=== PATIENT | female | born 1970 | race Caucasian/White ===

== ENCOUNTER → 2022-07-02 17:33 | Outpatient (CLI) | payer OTHER, SELFPAY ==
--- NOTE | ~2022-07-02 | XR_ITS ---
AP view of the pelvis and AP and lateral views of the left hip Clinical history: Pain Findings: No acute fracture or dislocation is seen. Osseous alignment is anatomic. Bilateral hip and SI joint spaces are preserved. Soft tissues are unremarkable. Impression: No significant abnormality is seen. Reviewed, dictated and finalized at [facility]. T BOOTH OPERATOR Impression: No significant abnormality is seen.
== END ==
PROVIDERS: PCP Nurse Practitioner Family; Visit Provider Chiropractor
DX: M25.551 Pain in right hip (principal); M25.552 Pain in left hip
CPT/HCPCS: 73502

== ENCOUNTER 2024-10-08 16:01 | Emergency (ER) | payer OTHER, SELFPAY ==
--- OUTSIDE RECORDS SUMMARY | 2024-10-08 16:02 | XMS_ITS | CONTINUITY OF CARE DOCUMENT ---
Author Name francisco singh Address Unknown Organization [facility] Address [address] [place] [address] Phone [phone] Care Team Providers Care Therapy Administrative Assistant Name Role Phone Som REDDY, [facility] [[email or web address]] Unavailable TOM HERNANDEZ MD Unavailable TOM HERNANDEZ MD Unavailable VITAL SIGNS Date Observation Value Provider blood pressure, diastolic 78 mm[Hg] Sylvie Hernandez blood pressure, systolic 127 mm[Hg] David Hernandez FUNCTIONAL STATUS Date Observation Value Provider periodic limb movement index absent (0) Jackelin Hernandez INSURANCE PROVIDERS Payer name Policy type / Coverage type Guero red democrat ID [facility] [id number] Other [id number]
--- OUTSIDE RECORDS SUMMARY | 2024-10-08 16:02 | XMS_ITS | Encounter Summary ---
Author Organization [facility] Address [address] [place] [address] Care Team Providers Care Pi/Senior Research Associate Name Role Phone Ele Adams MD Primary Care Provider + [phone] Jigna Reddy MD PhD Unavailable [phone] Jaclyn Carreon MD Unavailable [phone] Nila Fregoso NP Primary Care Provider + Encounter Details Date Type Department Care Team (Late st Contact Info) Description 12/02/[address] 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 Gender Identity Female 10/22/2022 7:27 AM CDT Sexual Orientation Straight 10/22/2022 7: 27 AM CDT documented as of this encounter Miscellaneous Notes * Telephone Encounter - Sallie Lozano RT - 12/02/2019 9:33 AM CDT documented in this encounter Plan of Treatment Scheduled Procedures Name Priority Associated Diagnoses Date/Ti me COLONOSCOPY Colon cancer screening COLONOSCOPY Endometrial polyp documented as of this encounter Visit Diagnoses Not on filedocumented in this encounter Care Teams Pi/Senior Research Associate Relationship Specialty Start Date End Date Ele Adams MD [address] [place] [address] PCP - General Family Medicine 03/24/18 03/14/20 Nila Fregoso NP [address] [place] [address] PCP - General Nurse Practitioner 03/15/20 Jigna Reddy MD PhD [address] [place] [address] Radiation Oncologist Radiation Oncology 04/18/18 Jaclyn Carreon MD [address] [place] [address] Surgeon Surgical Oncology 06/26/18 documented as of this encounter
--- OUTSIDE RECORDS SUMMARY | 2024-10-08 16:03 | XMS_ITS ---
Author Organization [facility] [address] [facility] Address [address] [place] [address] Care Team Providers Care Statement Clerks Manager Name Role Phone Jigna Reddy MD PhD Unavailable Jaclyn Carreon MD Unavailable Nila Fregoso MARKER MACHINE Primary Care Provider + Active Problems Problem Noted Date Diagnosed Date Screening for colon cancer 05/29/2023 Endometrial cancer 12/06/2022 Endometrial polyp 10/22/2022 Encounter for follow-up surveillance of endometr ial cancer 12/28/2020 Encounter for follow-up exam ination after completed treatment for conditions other than malignant neoplasm 06/26/2018 Personal history of in-situ neoplasm of breast 0 06/26/2018 Personal history of irradiation 06/26/2018 residential (current) use of s elective estrogen receptor modulators (serms) 06/26/2018 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 Past Treatment and Therapy Plans No past plan information found. Radiation Treatments * Course C1 [facility] BREAST 04/13/2018 - 04/17/2018 Treatment Period Energy Fraction Dose Fractions Total Dose Plans Planned VR [facility] BREAST 04/13/2018 - 04/17/2018 385 3,850 Reference Points Delivered [facility] BREAST 3850 04/13/2018 - 04/17/2018 3,850
--- OUTSIDE RECORDS SUMMARY | 2024-10-08 16:03 | XMS_ITS | Clinical Summary ---
Author Organization [facility] [address] [facility] Address [address] [place] [address] Care Team Providers Care Asbestos Remover Name Role Phone Jigna Reddy MD PhD Unavailable [phone] Jaclyn Carreon MD Unavailable [phone] Nila Fregoso BOOK SEWER Primary Care Provider + Allergies No known active allergies Medications No known medications Active Problems Problem Noted Date Diagnosed Date Screening for colon cancer 05/29/2023 Endometrial cancer 12/06/2022 Endometrial polyp 10/22/2022 Encounter for follow-up surveillance of endometr ial cancer 12/28/2020 Encounter for follow-up exam ination after completed treatment for conditions other than malignant neoplasm 06/26/2018 Personal history of in-situ neoplasm of breast 0 06/26/2018 Personal history of irradiation 06/26/2018 [facility] (current) use of s elective estrogen receptor modulators (serms) 06/26/2018 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 Cancer Staging:Pathologic:Stage 0(pTis (DCIS), cN0, cM0, G3, ER: Positive, [place]: Positive, HER2: Not assessed ) - Signed by Jigna Reddy MD PhD on 04/18/2018 Abnormal mammogram 12/07/2017 Family history of cardiovascular disease 017 Iron deficiency anemia 12/09/2016 Onychomycosis of toenail 12/09/2016 Mass of breast 06/05/2016 Encounters Date Type Department Care Team Description 10/04/2024 Plan of Care Documentation [facility] Physical Therapy [address] 1[address] [place] [address] 09/30/2024 2:00 PM CDT Therapy [facility] Therapy [address] 1[address] [place] [address] Dorota Franco, DPBart Endometrial adenocarcinoma (HCC) (Primary Dx); Ductal carcinoma in situ (DCIS) of right breast; Female genital prolapse, unspecified type; Arthralgia of hip, left; Surgical menopause; Arthralgia of hip, unspecified laterality 09/03/2024 2:20 PM CDT Office Visit [facility] Obstetrics and Gynecology [address] [facility] 13th [place] [address] [place] [address] Isidra Gar MD Encounter for routine cancer follow-up (Primary Dx); Endometrial adenocarcinoma (HCC); Vasomotor flushing 08/06/2024 7:14 AM CDT - 08/06/2024 11:59 PM CDT Hospital Encounter [facility] [address] [place] [address] Ductal carcinoma in situ (DCIS) of right breast; History of breast cancer Discharge Disposition: Discharge to home or self care 08/06/2024 Results Follow-Up [facility] Surgery [facility] [place] [address] Linnea Costa NP MRI Breast Bilateral W WO Contrast 08/02/2024 Telephone [facility] Surgery [facility] [address] [place] [address] Meagan García RN 07/12/2024 2:30 PM CDT Office Visit [facility] Obstetrics and Gynecology [address] [place] [address] Liudmila Sexton MD Surgical menopause (Primary Dx); Endometrial adenocarcinoma (HCC); Ductal carcinoma in situ (DCIS) of right breast; Female genital prolapse, unspecified type; Arthralgia of hip, unspecified laterality from Last 3 Months Immunizations Immunization Administration Dates Next Due DTaP 09/17/1976, 3,03/07/1972,02/01/1972,0 01/01/1972 Hep A, Adult 01/09/2017 Hep B Vaccine 06/11/2017,01/16/2017,12/09/2016 Hep B, Unspecified 01/09/2017 Influenza, Trivalent, IM (MDV) 01/18/2014 MMR 10/19/1979,10/13/1972 OPV 09/17/1976,07/27/1973,06/30/1972 ,03/07/1972 Td, Not Adsorbed 01/15/1993,12/23/1986 Tdap 10/25/2014,12/18/2004 Surgical History Surgery Date Site/Laterality Comments BREAST BIOPSY 11/18/2017 Right BREAST BIOPSY 05/05/2017 - 05/04/2018 Right BREAST BIOPSY 12/15/2017 Left BREAST LUMPECTOMY 03/09/2018 ROBOTIC ASSISTED HYSTERECTOMY HYSTERECTOMY Medical History Medical History Date Comments Anesthesia Mother (violentl y ill) and both kids (one had rash, other had delayed emergence) had problems with anesthesia Breast cancer (HCC) Motion sickness Family History Medical History Relation Name Comments Anesthesia problems Daughter nausea a nd stomach ache & white splotches- frenectomy Diabetes Father Heart attack Father Heart disease Father Lung cancer Maternal Grandfather Anesthesia problems Mother severe P ONV Stroke Mother Breast cancer Mother's Sister Anesthesia problems Son dentral extraction; long to wake up did not require intubation/hospital stay Malig Hypertension Neg Hx Malig Hyperthermia Neg Hx Pseudochol deficiency Neg Hx Relation Name Status Comments Daughter Father of MS age 71; 1st MS age 51 Maternal Grandfather Mother Alive CVA age 67 Mother's Sister Sister Alive Son Social History Tobacco Use Types Packs/Day Years Used Date Smoking Tobacco: Never Smokeless Tobacco: Never Tobacco Cessation:Counseling Given: Not Answered Alcohol Use Standard Drinks/Week Comments No 0 (1 standard drink = 0.6 oz pur e alcohol) AUDIT-C Answer Date Recorded Q1: How often do you have a drink containing alc ohol? Never 10/06/2023 Average Number of Drinks Not on file 024 Frequency of Binge Drinking Not on file 07/2023 Exercise Vital Sign Answer Date Recorde d On average, how many days pe r week do you engage in moderate to strenuous exercise (like a brisk walk)? 7 days 03/15/2020 On average, how many minutes do you engage in exercise at this level? 30 min 03/15/2020 Personal Safety Answer Date Recorded Have you ever been in or are you currently in a harmful physical or emotional relationship or is someone making you feel afraid or unsafe? 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 on file Not on fi le Obstetrics History Para Term AB IAB SAB Ectopic Multiple Livin g Live Births 2 2 2 2 2 Date Outcome GA Total Labor Labor/2nd/3rd Weight Sex Type Anes PTL Fiona A1 A5 Name Clin 1998 Term F Vag-S pont Living 2000 Term M Vag-S pont Living Last Filed Vital Signs Vital Sign Reading Time Taken Comments Blood Pressure 138/85 09/03/2024 2:52 PM CDT Pulse 92 09/03/2024 2:52 PM CDT Temperature 36.8 C (98.3 F) 09/03/2024 2:52 PM CDT Respiratory Rate 20 09/03/2024 2:52 PM CDT Oxygen Saturation 98% 09/03/2024 2:52 PM CDT Inhaled Oxygen Concentration - - Weight 90.3 kg (199 lb 1.6 oz) 09/03/2024 2:52 P M CDT Height 167.6 cm (5' 6) 08/06/2024 7:31 AM CDT Body Mass Index 32.14 08/06/2024 7:31 AM CDT Plan of Treatment Scheduled Procedures Name Priority Associated Diagnoses Date/Ti me COLONOSCOPY Colon cancer screening COLONOSCOPY Endometrial polyp Health Maintenance Due Date Last Done Comments Depression Screening 1970 Hepatitis C Screening 1970 Zoster Vaccine (1 of 2) 09/23/2021 DTaP/Tdap/Td Vaccine (8 - Td or Tdap) 10/25/2024 10/25/2014, 12/18/2004, 01/15/1993, Additional history exists Influenza Vaccine (Season Ended) 2025 01/18/2014 Regular Well Visit/Exam 18-64 02/01/2025 02/02/2024, 10/22/2022, 03/15/2021, Additional history exists Breast Cancer Screening-Mammogram 02/05/2025 02/06/2024, 02/04/2023, 01/01/2022, Additional history exists Colon Cancer Screening-Colonoscopy 10/05/2033 10/06/2023 Hepatitis B Screening Completed 06/11/2017 , 01/16/2017, 01/09/2017, Additional history exists Pneumococcal vaccine <65 Aged Out No longer eligible based on patient's age to complete this topic Procedures Procedure Name Priority Date/Time Associated Diagnosis Comments MRI BREAST BILATERAL W WO CONTRAST Schedule Routine, Read Routine (OP Routine) 08/06/2024 8:27 AM CDT Ductal carcinoma in situ (DCIS) of right breast History of breast cancer SCREENING MAMMOGRAM BILATERAL W PAULO Schedule Routine, Read Routine (OP Routine) 02/06/2024 2:24 PM CDT Personal history of in-situ neoplasm of breast COLONOSCOPY 10/06/2023 11:46 AM CDT from Last 3 Months or Most Recently Relevant to Health Maintenance Results * MRI Breast Bilateral W WO Contrast (08/06/2024 8:27 AM CDT) Anatomical Region Laterality Modality Breast Bilateral Magnetic Resonan ce 08/06/2024 9:43 AM CDT Impressions 08/06/2024 9:43 AM CDT No MR evidence of malignancy in either breast. OVERALL FINAL ASSESSMENT: BI-RADS Category 2: Benign. RECOMMENDATION: Annual screening mammography and breast MRI are recommended. Electronically signed by: Lor Rosen M.D. Narrative 08/06/2024 9:43 AM CDT EXAMINATION: 1. MRI EXAMINATION OF THE BREASTS WITH AND WITHOUT CONTRAST 2. 3D POST PROCESSING ON A DEDICATED 3D WORKSTATION HISTORY: High-risk Screening. 53 years old patient who presents for high risk screening MRI. The patient has a personal history of RIGHT breast ductal carcinoma in situ treated with breast conservation therapy in 2018. 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 The patient is currently on tamoxifen. The patient reports no new or current breast related complaints. TECHNIQUE: MRI examination of the breasts per breast tumor protocol with and without gadolinium contrast. A dedicated breast imaging coil was used. The images were transferred to a breast CAD system for 3D post processing and contrast kinetics analysis. CONTRAST: Gadoterate meglumine, 16 ml COMPARISON: Multiple priors dating back to 06/14/2021 and most recent screening mammogram dated 02/06/2024 was reviewed and is negative. BREAST COMPOSITION: Scattered fibroglandular tissue BACKGROUND PARENCHYMAL ENHANCEMENT: Mild FINDINGS: There are stable changes of breast conservation therapy of the right breast and postsurgical changes of the left breast. No suspicious mass or non-mass enhancement within either breast. No abnormally enlarged lymph nodes are identified in the visualized portions of either axilla. Redemonstration of subcentimeter hepatic cysts are again noted. Procedure Note Lor Rosen MD - 08/06/2024 EXAMINATION: 1. MRI EXAMINATION OF THE BREASTS WITH AND WITHOUT CONTRAST 2. 3D POST PROCESSING ON A DEDICATED 3D WORKSTATION HISTORY: High-risk Screening. 53 years old patient who presents for high risk screening MRI. The patient has a personal history of RIGHT breast ductal carcinoma in situ treated with breast conservation therapy in 2018. 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 The patient is currently on tamoxifen. The patient reports no new or current breast related complaints. TECHNIQUE: MRI examination of the breasts per breast tumor protocol with and without gadolinium contrast. A dedicated breast imaging coil was used. The images were transferred to a breast CAD system for 3D post processing and contrast kinetics analysis. CONTRAST: Gadoterate meglumine, 16 ml COMPARISON: Multiple priors dating back to 06/14/2021 and most recent screening mammogram dated 02/06/2024 was reviewed and is negative. BREAST COMPOSITION: Scattered fibroglandular tissue BACKGROUND PARENCHYMAL ENHANCEMENT: Mild FINDINGS: There are stable changes of breast conservation therapy of the right breast and postsurgical changes of the left breast. No suspicious mass or non-mass enhancement within either breast. No abnormally enlarged lymph nodes are identified in the visualized portions of either axilla. Redemonstration of subcentimeter hepatic cysts are again noted. IMPRESSION: No MR evidence of malignancy in either breast. OVERALL FINAL ASSESSMENT: BI-RADS Category 2: Benign. RECOMMENDATION: Annual screening mammography and breast MRI are recommended. Electronically signed by: Lor Rosen M.D. Linnea Cotsa NP [facility] MRI PROCEDURES Final R esult * Screening Mammogram Bilateral W Paulo (02/06/2024 2:24 PM CDT) Anatomical Region Laterality Modality Breast Bilateral Mammography Narrative 02/09/2024 11:06 AM CDT Mammogram Technique: Bilateral Digital Breast Tomosynthesis, Bilateral C-view 2D Screening mammogram. Views obtained: bilateral craniocaudal and bilateral mediolateral oblique. Computer Aided Detection was performed. Mammogram Findings: The present examination has been compared to prior imaging studies performed at [facility] on 12/29/2020, 01/01/2022 and 02/04/2023. The breasts are almost entirely fatty. There are post breast conservation therapy changes in the right breast. There is no suspicious abnormality in either breast. Impression: There is no mammographic evidence of malignancy. Annual screening mammography is recommended. OVERALL FINAL ASSESSMENT: BI-RADS CATEGORY 2: Benign. Procedure Note Chayito Severino MD - 02/09/2024 Mammogram Technique: Bilateral Digital Breast Tomosynthesis, Bilateral C-view 2D Screening mammogram. Views obtained: bilateral craniocaudal and bilateral mediolateral oblique. Computer Aided Detection was performed. Mammogram Findings: The present examination has been compared to prior imaging studies performed at [facility] on 12/29/2020, 01/01/2022 and 02/04/2023. The breasts are almost entirely fatty. There are post breast conservation therapy changes in the right breast. There is no suspicious abnormality in either breast. Impression: There is no mammographic evidence of malignancy. Annual screening mammography is recommended. OVERALL FINAL ASSESSMENT: BI-RADS CATEGORY 2: Benign. Jaclyn Carreon MD G MAMMO PROCEDURES Fi nal Result * Colonoscopy (10/06/2023 11:46 AM CDT) Anatomical Region Laterality Modality Other Narrative Procedure Note Giselle Heredia MD - 10/06/2023 11:46 AM CDT [facility] Patient Name: Jyoti Franco Procedure Date: 10/06/2023 11:46 AM Date of : 1970 Admit Type: Outpatient Age: 53 Gender: Female Attending MD: Giselle Heredia M.D. Room: [facility] ENDOSCOPY ROOM 4 Note Status: Finalized Procedure: Colonoscopy Indications: Screening for colorectal malignant neoplasm, Thisis the patient's first colonoscopy Referring MD: Isidra Gar M.D. Providers: Giselle Heredia M.D. Medicines: Monitored Anesthesia Care Complications: No immediate complications. Estimated Blood Loss: Estimated blood loss: none. Procedure: Pre-Anesthesia Assessment: - Immediately prior to administration ofmedications, the patient was re-assessed for adequacy to receive sedatives. - The risks and benefits of the procedure and the sedation options and risks were discussed with the patient. All questions were answered and informed consent was obtained. The benefits, risks and alternatives of theprocedure and sedation were discussed and informed consentwas obtained. All questions were answered. Please referto the signed informed consent document in the medical record. The scope was passed under direct vision.The CF [id number] endoscope was introduced through the anus and advanced to the cecum, identified by appendiceal orifice and ileocecal valve. The colonoscopy was performed without difficulty. The patient tolerated the procedure well. The qualityof the bowel preparation was evaluated using the BBPS ([place] Bowel Preparation Scale) with scores of:Right Colon = 3, Transverse Colon = 3 and Left Colon = 3 (entire mucosa seen well with no residual staining, small fragments of stool or opaque liquid). Thetotal BBPS score equals 9. The bowel preparation used was polyethylene glycol (PEG) via split doseinstruction. The quality of the bowel preparation wasexcellent. Findings: A few small-mouthed diverticula were found in the sigmoid colon. Small non-bleeding internal hemorrhoids were found on retroflexion. The exam was otherwise without abnormality. Impression: - Diverticulosis in the sigmoid colon. - Small non-bleeding internal hemorrhoids werefound on retroflexion. - The examination was otherwise normal. - No specimens collected. Recommendation: - Repeat colonoscopy in 10 years for screening purposes. Attending Participation: I personally performed the entire procedure. Electronically signed by Giselle Heredia MD Giselle Heredia M.D. 10/06/2023 12:22:45 PM . Number of Addenda: 0 Note Initiated On: 10/06/2023 11:46 AM us Giselle Heredia MD ENDOSCOPY PROCEDURES Final Res ult from Last 3 Months or Most Recently Relevant to Health Maintenance Insurance [facility] CHOICE PLUS [facility] HMO/PPO Address: [address] [place] [address] [address] [place] [address] [facility] CHOICE PLUS [facility] HMO/PPO Address: [address] [address] [place] [address] [place] [address] [facility] CHOICE PLUS [facility] HMO/PPO Address: [address] [address] [place] [address] Advance Directives For more information, please contact: [phone] * Full Code (Latest Code Status on File) Date Activated Date Inactivated Comments 10/06/2023 11:24 AM 10/06/2023 5:59 PM Care Teams Asbestos Remover Relationship Specialty Start Date End Date Nila Fregoso NP PCP - General Nurse Practitioner 03/15/20 Jigna Reddy MD PhD Radiation Oncologist Radiation Oncology 04/18/18 Jaclyn Carreon MD Surgeon Surgical Oncology 06/26/18
--- OUTSIDE RECORDS SUMMARY | 2024-10-08 16:03 | XMS_ITS | Encounter Summary ---
Author Organization [facility] Address [address] [place] [address] Phone Care Team Providers Care Sericulture Teacher Name Role Phone Jigna Reddy MD PhD Unavailable [phone] Jaclyn Carreon MD Unavailable [phone] Nila Fregoso NP Primary Care Provider + Encounter Details Date Type Department Care Team (Late st Contact Info) Description 08/06/2024 Results Follow-Up [facility] Surgery [address] [place] [address] Linnea Costa NP [address] [facility] [id number] [place] [address] MRI Breast Bilateral W WO Contrast Social History Tobacco Use Types Packs/Day Years [...] on file Legal Sex Female 7:31 PM [employer] Gender Identity Female 10/22/2022 7:27 AM CDT Sexual Orientation Straight 10/22/2022 7: 27 AM CDT 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
--- OUTSIDE RECORDS SUMMARY | 2024-10-08 16:03 | XMS_ITS | Referral Summary ---
Author Organization [facility] [address] [facility] Address [address] [place] [address] Care Team Providers Care Immunology Teacher Name Role Phone Jigna Reddy MD PhD Unavailable [phone] Jaclyn Carreon MD Unavailable [phone] Nila Fregoso NP Primary Care Provider + Encounters Date Type Department Care Team Description 10/04/2024 Plan of Care Documentation [facility] Physical Therapy [address] [facility] 1st Floor [address] [place] [address] 09/30/2024 2:00 PM CDT Therapy [facility] Physical Therapy [address] [facility] 1st Floor [address] [place] [address] Dorota Franco DPT Endometrial adenocarcinoma (HCC) (Primary Dx); Ductal carcinoma in situ (DCIS) of right breast; Female genital prolapse, unspecified type; Arthralgia of hip, left; Surgical menopause; Arthralgia of hip, unspecified laterality 09/03/2024 2:20 PM CDT Office Visit [facility] Obstetrics and Gynecology [address] [facility] 13th [place] [address] [place] [address] Isidra Gar MD Encounter for routine cancer follow-up (Primary Dx); Endometrial adenocarcinoma (HCC); Vasomotor flushing 08/06/2024 Results Follow-Up [facility] Surgery [address] [facility] Floor 8 [place] [address] Linnea Costa NP MRI Breast Bilateral W WO Contrast 08/06/2024 7:14 AM CDT - 08/06/2024 11:59 PM CDT Hospital Encounter [facility] [address] [place] [address] Ductal carcinoma in situ (DCIS) of right breast; History of breast cancer Discharge Disposition: Discharge to home or self care 08/02/2024 Telephone [facility] Surgery [address] Floor 8 [place] [address] Meagan García RN 07/12/2024 2:30 PM CDT Office Visit [facility] Obstetrics and Gynecology [address] [facility] 1st Floor [address] [place] [address] Liudmila Sexton MD Surgical menopause (Primary Dx); Endometrial adenocarcinoma (HCC); Ductal carcinoma in situ (DCIS) of right breast; Female genital prolapse, unspecified type; Arthralgia of hip, unspecified laterality from Last 3 Months Allergies No known active allergies Medications No [...] 0 06/26/2018 Personal history of irradiation 06/26/2018 USP (current) use of s elective estrogen receptor modulators (serms) 06/26/2018 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 Cancer Staging:Pathologic:Stage 0(pTis (DCIS), cN0, cM0, G3, ER: Positive, ND: Positive, HER2: Not assessed ) - Signed by Jigna Reddy MD PhD on 04/18/2018 Abnormal mammogram 12/07/2017 Family history of cardiovascular disease 017 Iron deficiency anemia 12/09/2016 Onychomycosis of toenail 12/09/2016 Mass of breast 06/05/2016 Immunizations Immunization Administration Dates Next Due DTaP 09/17/1976, 3,03/07/1972,02/01/1972,0 01/01/1972 Hep A, Adult 01/09/2017 Hep B Vaccine 06/11/2017,01/16/2017,12/09/2016 Hep B, Unspecified 01/09/2017 Influenza, Trivalent, IM (MDV) 01/18/2014 MMR 10/19/1979,10/13/1972 OPV 09/17/1976,07/27/1973,06/30/1972 ,03/07/1972 Td, Not Adsorbed 01/15/1993,12/23/1986 Tdap 10/25/2014,12/18/2004 Social History Tobacco Use Types Packs/Day Years [...] on file Legal Sex Female 7: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 Linnea Costa NP [facility] [place] PROCEDURES Final R esult * Screening [...] compared to prior imaging studies performed at [facility] on 12/29/2020, 01/01/2022 and 02/04/2023. The breasts [...] compared to prior imaging studies performed at [facility] on 12/29/2020, 01/01/2022 and 02/04/2023. The breasts are almost entirely fatty. There are post breast conservation therapy changes in the right breast. There is no suspicious abnormality in either breast. Impression: There is no mammographic evidence of malignancy. Annual screening mammography is recommended. OVERALL FINAL ASSESSMENT: BI-RADS CATEGORY 2: Benign. Jaclyn Carreon MD IMG MAMMO PROCEDURES Fi nal Result * Colonoscopy (10/06/2023 11:46 AM CDT) Anatomical Region Laterality Modality Other Narrative Procedure Note Giselle Heredia MD - 10/06/2023 11:46 AM CDT [facility] Patient Name: Jyoti Franco Procedure Date: 10/06/2023 11:46 AM Date of : 1970 Admit Type: Outpatient Age: 53 Gender: Female Attending MD: Giselle Heredia M.D. Room: [facility] ENDOSCOPY ROOM 4 Note Status: Finalized [...] scope was passed under direct vision.The CF [id number] endoscope was introduced through the anus and advanced to the cecum, identified by appendiceal orifice and ileocecal valve. The colonoscopy was performed without difficulty. The patient tolerated the procedure well. The qualityof the bowel preparation was evaluated using the BBPS ([place] Bowel Preparation Scale) with scores of:Right Colon [...] Most Recently Relevant to Health Maintenance Insurance [facility] Address: [address] [address] [place] [address] [address] [place] [address] [facility] Address: [address] [address] [place] [address] [place] [address] [facility] Address: [address] [place], [place] [id number] Advance Directives For more information, please contact: [phone] * Full Code (Latest Code Status on File) Date Activated Date Inactivated Comments 10/06/2023 11:24 AM 10/06/2023 5:59 PM Care Teams Immunology Teacher Relationship Specialty Start Date End Date Nila Fregoso NP PCP - General Nurse Practitioner 03/15/20 Jigna Reddy MD PhD Radiation Oncologist Radiation Oncology 04/18/18 Jaclyn Carreon MD Surgeon Surgical Oncology 06/26/18
--- OUTSIDE RECORDS SUMMARY | 2024-10-08 16:06 | XMS_ITS | CONTINUITY OF CARE DOCUMENT ---
Author Name francisco singh Address Unknown Organization [facility] Address [address] [place] [address] Phone [phone] Care Team Providers Care Marketing Admin Name Role Phone Som REDDY, [facility] Unavailable [phone] TOM HERNANDEZ MD Unavailable [phone] TOM HERNANDEZ MD Unavailable VITAL SIGNS Date Observation Value Provider blood pressure, diastolic 78 mm[Hg] Sylvie Hernandez blood pressure, systolic 127 mm[Hg] David Hernandez FUNCTIONAL STATUS Date Observation Value Provider periodic limb movement index absent (0) Jackelin Hernandez INSURANCE PROVIDERS Payer name Policy type / Coverage type Guero red constitution party ID [facility] [id number] Other [id number]
[2024-10-08 16:15] VITALS: BP 136/69; PULSE 65; RESP 16; TEMP 35.9; O2SAT 99
[2024-10-08 16:28] LABS: EDSTREPNEGPOS1 Negative (Negative)
--- NOTE | 2024-10-08 17:30 | ED.URI ---
HPI - URI/Sore Throat General Chief Complaint: Upper Respiratory Infection Stated Complaint: sinus congestion Time Seen by Provider: 10/08/24 16:15 Source: patient and RN notes reviewed Mode of arrival: ambulatory Limitations: no limitations History of Present Illness HPI Narrative: 54-year-old female presents Express Care complaining for upper respiratory symptoms x1 month. Patient says the symptoms are not getting better. Patient has tried vkgy-cje-qmrrnky treatment without any improvement. Patient reports having sinus congestion that is worse on the left side of her face, chronic cough, ear fullness. Patient denies any other upper respiratory symptoms or nasal discharge. Patient denies any significant past medical history. Related Data Allergies Allergy/AdvReac Type Severity Reaction Status Date / Time No Known Allergies Allergy Mild Verified 10/08/24 16:13 Review of Systems Review of Systems: CONSTITUTIONAL: Denies fever, chills, body aches, or sweats. EYES: Denies visual changes, redness, or discharge. ENT: Negative for rhinorrhea, sore throat, or otalgia. Positive for congestion and sinus pressure. CARDIOVASCULAR: Denies chest pain, palpitations, or edema. RESPIRATORY: Negative for cough and dyspnea. GASTROINTESTINAL: Denies abdominal pain, nausea, vomiting, or diarrhea. GENITOURINARY: Denies dysuria or hematuria. SKIN: Denies rash or itching. MUSCULOSKELETAL: Denies back pain, joint pain, or myalgia. NEUROLOGIC: Denies headache, numbness, or weakness. PSYCHIATRIC: Denies anxiety or depression. All other systems reviewed are negative, except as documented in HPI. [facility] Past Medical History Medical History Osteoarthritis Obese Breast cancer 2018 Endometrial cancer 2022, secondary to use of Tamoxifen (5% of population will get CA) Hepatitis A 1994 Cancer Breast Cancer 2018, Endometrial Cancer 2022 Surgical History Surgical History H/O: hysterectomy 2022 H/O lumpectomy left and right 2017 Family History Family History Grandparent Asthma Diabetes mellitus Heart disease Cerebrovascular accident Cancer Sibling Heart disease Mother Hypertension Breast cancer Cerebrovascular accident Thyroid disorder Father Diabetes mellitus Heart disease Social History Social History Smoking status: Never smoker Alcohol intake: never Substance use: never Substance use type: does not use Occupation/Education: occupation Gender identity (if verbalized by the patient): Female Comments At the time of my signature, I reviewed and agree with the nursing past medical, surgical, social, and family history. There is no relevant family history pertinent to the patient complaint. Exam Narrative: GENERAL: This is a well-nourished, well-developed adult, in no apparent distress. They are non ill-appearing, nontoxic appearing. HEAD: normocephalic, atraumatic. EYES: Sclera clear/white. Vision is grossly intact. Conjunctiva normal bilaterally. Extraocular movements intact. EARS: External ears normal, auditory canals clear and without drainage, TMs without erythema or perforation. Hearing grossly intact. NOSE: External nose normal with no obvious nasal discharge, nasal turbinates erythematous, no rhinorrhea. Left sinus tenderness to palpation the left maxillary and frontal sinuses. Abnormal transillumination of maxillary sinuses bilaterally THROAT: Mucous membranes moist, posterior pharynx erythematous without exudate. Uvula is midline. Postnasal drip present. NECK: Neck supple, non-tender without lymphadenopathy, masses or thyromegaly. CARDIOVASCULAR: Regular rate and rhythm without murmurs, gallops, or rubs. RESPIRATORY: Clear to auscultation. Breath sounds equal bilaterally. No wheezes, rales, or rhonchi. SKIN: warm, Dry, intact with no suspicious lesions or rash, good texture and turgor. NEURO: awake, alert, and oriented to person, place and time. There were no obvious focal neurologic abnormalities. EXTREMITIES: No joint tenderness, effusion, or edema noted. BACK: Nontender without deformity. Course Course Emergency Course: Portions of this record may have been created with voice recognition software Level of Care: Express Care Visit Vital Signs Vital signs: Vital Signs Temperature 96.7 F L 10/08/24 16:15 Pulse Rate 65 10/08/24 16:15 Respiratory Rate 16 10/08/24 16:15 Blood Pressure 136/69 10/08/24 16:15 Pulse Oximetry 99 10/08/24 16:15 Oxygen Delivery Room Air 10/08/24 16:15 Temperature 96.7 F L 10/08/24 16:15 Pulse Rate 65 10/08/24 16:15 Respiratory Rate 16 10/08/24 16:15 Blood Pressure 136/69 10/08/24 16:15 Pulse Oximetry 99 10/08/24 16:15 Oxygen Delivery Room Air 10/08/24 16:15 MDM - URI/Sore Throat MDM Narrative Medical decision making narrative: Given patient's length of symptoms it is likely she has developed a bacterial sinusitis. Will treat with Augmentin. Discussed physical exam findings. Advised supportive measures and signs/symptoms to go to the ER. Pt is appropriate for outpt treatment and f/u. Differential Diagnosis Differential diagnosis: Likely upper respiratory infection, sinusitis and pharyngitis Lab Data Attestation: I reviewed the patient's lab results. Labs: Lab Results 10/08/24 Range/Units 16:27 POC Grp A Strep Screen Negative (Negative) Discharge Plan Discharge Clinical Impression: Sinusitis Qualifiers: Sinusitis location: unspecified location Chronicity: acute Recurrence: non-recurrent Qualified Code(s): J01.90 - Acute sinusitis, unspecified Patient Disposition: Home Condition: Stable Instructions: Antibiotic Form, Sinusitis (ED) Additional Instructions: Your rapid strep was negative today. A Throat culture will be sent off and if it is positive you will be contacted. Take the antibiotics as directed and complete the course even if you start to feel better. You may use a Neti pot saline rinse 3 times a day with lukewarm distilled water Continue to take Tylenol or Motrin for pain. Use a humidifier or vaporizer at night. Drink plenty of water. 8-10 glasses per day. Use flonase 2 times per day for 5 days then as needed Take mucinex 2 times per day and be sure to take with 8oz of water. Follow up with Primary provider in 3-5 days Please go to the ER if he develops any difficulty breathing, worsening symptoms, or any other concerns Patient Language: Kenyan Prescriptions: New amoxicillin-pot clavulanate 875-125 mg tablet 1 tablet PO Q12H 7 Days Qty: 14 0RF fluticasone propionate [Flonase Allergy Relief] 50 mcg/actuation spray,suspension 2 spray intranasal DAILY Qty: 1 0RF Rx Instructions: administer into each nostril Follow-up/Referrals: Nila Fregoso APRN [Primary Care Provider] - Time of Disposition: 16:32
== END 2024-10-08 16:36 | disposition home or self-care (01) ==
PROVIDERS: PCP Nurse Practitioner Family
DX: J01.90 Acute sinusitis, unspecified (principal); M19.90 Unspecified osteoarthritis, unspecified site; E66.9 Obesity, unspecified; Z68.31 Body mass index [BMI] 31.0-31.9, adult; Z85.3 Personal history of malignant neoplasm of breast; Z85.42 Personal history of malignant neoplasm of other parts of uterus; Z90.13 Acquired absence of bilateral breasts and nipples
CPT/HCPCS: 87081; 87880; 99213; G0463

== ENCOUNTER 2024-10-26 10:00 | Emergency (ER) | payer OTHER, SELFPAY ==
[2024-10-26 10:13] VITALS: BP 144/73; PULSE 102; RESP 20; TEMP 36.8; O2SAT 100
[2024-10-26 10:39] LABS: EDUAAPPEAR Cloudy; EDUABILI 1+ (Negative); EDUABLOOD 2+ (Negative); EDUACOLOR1 Yellow; EDUAGLUCOSE Negative (Negative); EDUAKETONE 1+ (Negative); EDUALEUKO Trace (Negative); EDUANITRATE Negative (Negative); EDUAPROTEIN 1+ (Negative); EDUASPGRAVITY 1.025
--- NOTE | 2024-10-26 10:57 | ED_ITS ---
HPI - URI/Sore Throat General Chief Complaint: Upper Respiratory Infection Stated Complaint: Sinus Infection Time Seen by Provider: 10/26/24 10:15 Source: patient and RN notes reviewed Mode of arrival: ambulatory Limitations: no limitations History of Present Illness HPI Narrative: 54-year-old female presents Express Care complaining of upper respiratory symptoms and mid back pain. Patient was recently treated for sinusitis earlier this month stated that symptoms mostly resolved but symptoms still persisted. Patient stated over the last 3-4 days she has developed worsening right-sided sinus pressure, mucopurulent drainage, fevers, body aches, chills, dry cough. Patient denies any sore throat, ear pain, chest pain, shortness of breath, abdominal pain, nausea, vomiting, diarrhea. Patient also said she has noticed mid back pain over the last few days. Patient denies any urinary symptoms, hematuria, or flank pain. Related Data Allergies Allergy/AdvReac Type Severity Reaction Status Date / Time No Known Allergies Allergy Mild Verified 10/26/24 10:19 Review of Systems Review of Systems: CONSTITUTIONAL: Denies sweats. Positive for fevers, body aches, chills. EYES: Denies visual changes, redness, or discharge. ENT: Denies rhinorrhea, sore throat, or otalgia. Positive for congestion and sinus pressure. CARDIOVASCULAR: Denies chest pain, palpitations, or edema. RESPIRATORY: Positive for cough. Negative for wheezing, or dyspnea. GASTROINTESTINAL: Denies abdominal pain, nausea, vomiting, or diarrhea. GENITOURINARY: Denies dysuria or hematuria. SKIN: Denies rash or itching. MUSCULOSKELETAL: Denies joint pain, or myalgia. Positive for back pain. NEUROLOGIC: Denies headache, numbness, or weakness. PSYCHIATRIC: Denies anxiety or depression. All other systems reviewed are negative, except as documented in HPI. [facility] Past Medical History Medical History Osteoarthritis Obese Breast cancer 2018 Endometrial cancer 2022, secondary to use of Tamoxifen (5% of population will get CA) Hepatitis A 1994 Cancer Breast Cancer 2017, Endometrial Cancer 2022 Surgical History Surgical History H/O: hysterectomy 2022 H/O lumpectomy left and right 2018 Family History Family History Grandparent Asthma Diabetes mellitus Heart disease Cerebrovascular accident Cancer Sibling Heart disease Mother Hypertension Breast cancer Cerebrovascular accident Thyroid disorder Father Diabetes mellitus Heart disease Social History Social History Smoking status: Never smoker Alcohol intake: never Substance use: never Substance use type: does not use Occupation/Education: occupation Gender identity (if verbalized by the patient): Female Comments At the time of my signature, I reviewed and agree with the nursing past medical, surgical, social, and family history. There is no relevant family history pertinent to the patient complaint. Exam Narrative: GENERAL: This is a well-nourished, well-developed adult, in no apparent distress. They are non ill-appearing, nontoxic appearing. Afebrile. HEAD: normocephalic, atraumatic. EYES: Sclera clear/white. Conjunctiva normal. Vision is grossly intact. Extraocular movements intact EARS: External ears normal, auditory canals clear and without drainage, TMs normal without perforation. Hearing grossly intact. NOSE: External nose normal with no obvious nasal discharge, nasal turbinates erythematous. No rhinorrhea. Maxillary Sinus tenderness to palpation THROAT: Mucous membranes moist, posterior pharynx without erythema or swelling. Uvula midline. Postnasal drip present. NECK: Neck supple, mild tenderness with cervical lymphadenopathy, no masses or thyromegaly. CARDIOVASCULAR: Regular rate and rhythm without murmurs, gallops, or rubs. RESPIRATORY: Clear to auscultation. Breath sounds equal bilaterally. No wheezes, rales, or rhonchi. Respiratory rate normal, respiratory effort nonlabored, no respiratory distress GASTROINTESTINAL: Abdomen soft, non-tender, nondistended. No hepato- splenomegaly, or palpable masses. No guarding or rigidity. SKIN: warm, Dry, intact with no suspicious lesions or rash, good texture and tu rgor. NEURO: awake, alert, and oriented to person, place and time. There were no obvious focal neurologic abnormalities. EXTREMITIES: No joint tenderness, effusion, or edema noted. BACK: Nontender without deformity. No CVA tenderness. Course Course Emergency Course: Portions of this record may have been created with voice recognition software Level of Care: Express Care Visit Vital Signs Vital signs: Vital Signs Temperature 98.2 F 10/26/24 10:13 Pulse Rate 102 H 10/26/24 10:13 Respiratory Rate 20 10/26/24 10:13 Blood Pressure 144/73 H 10/26/24 10:13 Pulse Oximetry 100 10/26/24 10:13 Oxygen Delivery Room Air 10/26/24 10:13 Temperature 98.2 F 10/26/24 10:13 Pulse Rate 102 H 10/26/24 10:13 Respiratory Rate 20 10/26/24 10:13 Blood Pressure 144/73 H 10/26/24 10:13 Pulse Oximetry 100 10/26/24 10:13 Oxygen Delivery Room Air 10/26/24 10:13 Reviewed MDM - URI/Sore Throat MDM Narrative Medical decision making narrative: Patient's symptoms consistent with a bacterial sinusitis. Patient is not having urinary symptoms but stated having mid back pain, urine dipstick was obtained showed evidence of infection. Will go ahead and treat for a UTI and a bacterial sinusitis with cefuroxime. Urine culture pending. Physical exam without concerning findings. Discussed physical exam findings. Advised supportive measures and signs/symptoms to go to the ER. Pt is appropriate for outpt treatment and f/u. Differential Diagnosis Differential diagnosis: Likely upper respiratory infection, sinusitis and other (Urinary tract infection, pyelonephritis) Lab Data Attestation: I reviewed the patient's lab results. Labs: Lab Results 10/26/24 Range/Units 10:36 POC Urine Color Yellow POC Urine Clarity Cloudy POC Urine pH 6.0 POC Ur Specif [place] 1.025 POC Urine Protein 1+ (Negative) POC Ur Glucose (UA) Negative (Negative) POC Urine Ketones 1+ (Negative) POC Urine Blood 2+ (Negative) POC Urine Nitrite Negative (Negative) POC Urine Bilirubin 1+ (Negative) POC Urine Urobilinogen 1.0 POC U Leukocyte Esteras Trace (Negative) Critical Care Time Critical Care Time Critical Care Time: No Discharge Plan Discharge Clinical Impression: Sinusitis Qualifiers: Sinusitis location: unspecified location Chronicity: acute Recurrence: recurrent Qualified Code(s): J01.91 - Acute recurrent sinusitis, unspecified Urinary tract infection Qualifiers: Urinary tract infection type: site unspecified Hematuria presence: with hematuria Qualified Code(s): N39.0 - Urinary tract infection, site not specified Patient Disposition: Home Condition: Stable Instructions: Antibiotic Form, Urinary Tract Infection in Women (ED), Sinusitis (ED) Additional Instructions: Take the antibiotics as directed and complete the course even if you start to feel better. You may use a Neti pot saline rinse 3 times a day with lukewarm distilled water Continue to take Tylenol or Motrin for pain. Use a humidifier or vaporizer at night. Drink plenty of water. 8-10 glasses per day. Use flonase 2 times per day for 5 days then as needed Take mucinex 2 times per day and be sure to take with 8oz of water. Urine also showed evidence of an infection. The urine will be sent of for a culture to identify what type of bacteria is causing your infection. If the culture shows that the antibiotic will not get rid of your infection, you will be notified and a new antibiotic will be called in for you. Increase water intake you will need to follow up with your PCP 3-5 days. Go to the ER for any worsening symptoms, abdominal pain, fevers, nausea, vomiting, difficulty breathing, worsening symptoms, or any other concerns Patient Language: Georgian Prescriptions: New cefuroxime axetil 500 mg tablet 500 mg PO BID 7 Days Qty: 14 0RF Follow-up/Referrals: Nila Fregoso APRN [Primary Care Provider] - Time of Disposition: 10:50
== END 2024-10-26 11:01 | disposition home or self-care (01) ==
PROVIDERS: PCP Nurse Practitioner Family
DX: J01.91 Acute recurrent sinusitis, unspecified (principal); N39.0 Urinary tract infection, site not specified; M19.90 Unspecified osteoarthritis, unspecified site; E66.9 Obesity, unspecified; Z68.31 Body mass index [BMI] 31.0-31.9, adult; Z85.3 Personal history of malignant neoplasm of breast; Z85.42 Personal history of malignant neoplasm of other parts of uterus; Z90.13 Acquired absence of bilateral breasts and nipples
CPT/HCPCS: 81003; 87086; 99213; G0463

== ENCOUNTER 2024-11-15 08:13 | Outpatient (CLI) | payer OTHER, SELFPAY ==
--- NOTE | ~2024-11-15 | CT_ITS ---
CT sinus wo con Ordering provider: Paulino Dalton M.D. History: . J01.01 - Acute recurrent maxillary sinusitis . Comparison: None. Technique: Thin slice Scans CT of the paranasal sinuses was performed with coronal and sagittal refor matted images. No IV contrast. . Automated exposure control and iterative reconstruction technique w ere employed. The dose-length product was 402.94 mGy-cm. Findings: NASAL SEPTUM: midline. OSTEOMEATAL UNITS: Bilaterally patent. NASAL TURBINATES AND NASOPHARYNX: Normal. PARANASAL SINUSES: Left sphenoid sinus disease. Otherwise, Well aerated. VISUALIZED MASTOIDS: Normal as visualized. BONES: Normal. SUPERFICIAL SOFT TISSUES/VISUALIZED BRAIN PARENCHYMA: Normal. IMPRESSION: Left sphenoid sinus disease. Other appearances are unremarkable. Reviewed, dictated and finalized at location A.
== END 2024-11-15 08:14 | disposition home or self-care (01) ==
PROVIDERS: PCP Otolaryngology; Visit Provider Otolaryngology
DX: J01.01 Acute recurrent maxillary sinusitis (principal); J32.3 Chronic sphenoidal sinusitis; J32.2 Chronic ethmoidal sinusitis; J30.2 Other seasonal allergic rhinitis
CPT/HCPCS: 70486